=== PATIENT | male | born 1995 | race Caucasian/White ===

== ENCOUNTER → 2021-07-18 | Outpatient (REF) | payer BC | LOC: M LAB REF 16:38 | PROVIDERS: ATTEND Internal Medicine | DX: R59.0 Localized enlarged lymph nodes (principal) ==

== ENCOUNTER → 2022-05-28 | Outpatient (CLI) | payer OTHER | LOC: M RAD 13:00 | PROVIDERS: ATTEND Internal Medicine | DX: R10.2 Pelvic and perineal pain (principal); R59.0 Localized enlarged lymph nodes ==

== ENCOUNTER → 2022-07-11 | Outpatient (CLI) | payer OTHER ==
[~2022-07-11] MED LIST: LIDOCAINE 1% MDV 20ML VIAL As Ordered ONE; SERT25TA21
[2022-07-11 13:58] VITALS: BP 142/91
== END ==
LOC: M IRPRO 13:11
PROVIDERS: ATTEND Surgery
DX: R59.1 Generalized enlarged lymph nodes (principal)

== ENCOUNTER → 2022-09-20 | Outpatient (CLI) | payer OTHER ==
[~2022-09-20] MED LIST changes: -LIDOCAINE 1% MDV 20ML VIAL As Ordered ONE
== END ==
LOC: M RAD 18:14
PROVIDERS: ATTEND Otolaryngology
DX: J33.9 Nasal polyp, unspecified (principal); J32.0 Chronic maxillary sinusitis; J32.2 Chronic ethmoidal sinusitis; J32.3 Chronic sphenoidal sinusitis